=== PATIENT | female | born 2005 | race Caucasian/White ===

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

== ENCOUNTER 2025-03-15 08:57 | Outpatient (REF) | payer OTHER, SELFPAY | END 2025-03-15 08:58 | disposition home or self-care (01) | LOC: HO.LNP 08:57 | PROVIDERS: PCP Nurse Practitioner Family; Visit Provider Physician Assistant Medical | DX: N39.0 Urinary tract infection, site not specified (principal) | CPT/HCPCS: 87086; 87088; 87186 ==

== ENCOUNTER 2025-03-15 08:57 | Outpatient (AMB) | payer OTHER, SELFPAY ==
--- NOTE | 2025-03-15 09:17 | AM.OFFWIN_ITS ---
Intake Vital Signs 03/15/25 09:18 Height 5 ft 3 in BMI Reason not done Patient refused/unable BP 118/78 Blood Pressure Location Lt brachial Position Sitting Pulse 76 Pulse Source Pulse Oximeter Temp 97.8 F Temp Source Oral Pulse Oximetry (%) 98 Oxygen Delivery Method Room Air Intake Visit Reasons: EP ? UTI Allergies No Known Allergies Allergy (Verified 03/15/25 09:17) Do you need a note to return to daycare/school/sports/work: Yes HPI HPI Comments History of Present Illness Details 19 yo female who presents today with her mother for dysuria for the past 3 days. She states that she has been having pain and burning with urination for the past few days. She states that she has been having urgency and frequency. She has had some blood in her urine and it has been cloudy. She states that her last menses was February 13. She is not sexually active. She wears cotton underwear but she needs new ones. She admits that she has been using sex toys and she has been storing them in a velvet bag. Her mother has been telling her to wash them with each use. She denies fever or chills. She denies abd pain, n/v/d, vaginal discharge, or vaginal bleeding. She is not sexua lly active. She did use OTC Azo at home the last 2 days. Review of Systems Const Denies chills and Denies fever(s) Card Denies dyspnea Resp Denies dyspnea GI Denies abdominal pain, Denies constipation, Denies diarrhea, Denies nausea and Denies vomiting Reports hematuria, Reports dysuria, Reports urinary urgency, Denies vaginal discharge, Denies vaginal odor and Denies vaginal pruritus Physical Exam Vital Signs: Last Vital Signs Temp 97.8 F 03/15/25 09:18 Pulse 76 03/15/25 09:18 BP 118/78 03/15/25 09:18 Pulse Ox 98 03/15/25 09:18 Oxygen Delivery Method Room Air 03/15/25 09:18 Resp Auscultation: clear to auscultation bilaterally Cardio Rate: regular rate Rhythm: regular rhythm GI Palpation (GI): Soft to palpation, nontender and No Rebound tenderness present Auscultation: normal bowel sounds General: Yes no CVA tenderness Back/Spine/Pelvis Back: no CVA tenderness Results AMB Urinalysis, Automated UA Leukoctes 125 Varun/uL Last Edit by Milton Wagner CMA on 03/15/25 09:4 3 UA Nitrite Positive Last Edit by Milton Wagner CMA on 03/15/25 09:43 UA Urobilinogen 1 mg/dL Last Edit by Milton Wagner CMA on 03/15/25 09:4 3 UA Protein 30 mg/dL Last Edit by Milton Wagner CMA on 03/15/25 09:43 UA pH 7.5 Last Edit by Milton Wagner CMA on 03/15/25 09:43 UA Blood 25 [place]/uL Last Edit by Milton Wagner CMA on 03/15/25 09:43 UA Specific [place] 1.010 Last Edit by Milton Wagner CMA on 03/15/25 09:43 UA Ketone Negative Last Edit by Milton Wagner CMA on 03/15/25 09:43 UA Bilirubin 2 mg/dL Last Edit by Milton Wagner CMA on 03/15/25 09:43 UA Glucose 250 mg/dL Last Edit by Milton Wagner CMA on 03/15/25 09:43 Results Reviewed Results Reviewed: Laboratory Last Values Urine pH (Auto) 7.5 03/15/25 09:42 Specific [place] (Auto) 1.010 03/15/25 09:42 Urine Protein (Auto) 30 mg/dL 03/15/25 09:42 Glucose (UA)(Auto) 250 mg/dL 03/15/25 09:42 Urine Ketones (Auto) Negative 03/15/25 09:42 Urine Blood (Auto) 25 [place]/uL 03/15/25 09:42 Urine Nitrite (Auto) Positive 03/15/25 09:42 Urine Bilirubin (Auto) 2 mg/dL 03/15/25 09:42 Urine Urobilinogen (Auto) 1 mg/dL 03/15/25 09:42 Leukocyte Esterase (Auto) 125 Varun/uL 03/15/25 09:42 Assessment & Plan Assessment & Plan (1) UTI (urinary tract infection): Code(s): N39.0 - Urinary tract infection, site not specified Plan Most likely UTI plan- -will do a UA in the office -UA shows 2+ leuko, pos nitrates, pos urobil, pos protein, 1+blood, 2+beni, 1+glu -drink lots of fluids -cefuroxime 500 mg BID for 5 days -will order UC -f/u with PCP Orders: Orders AMB Urinalysis Automated Today Z13.9 - Encounter for screening, unspecified Urine Culture Today N39.0 - Urinary tract infection, site not specified Medications: New cefuroxime axetil 500 mg PO Q12H 10 tabs 0RF Coding Level of Care Code New Pt Level 3 (79881) Diagnoses UTI (urinary tract infection) N39.0
[2025-03-15 09:18] VITALS: BP 118/78; PULSE 76; TEMP 36.6; O2SAT 98
== END 2025-03-15 10:47 | disposition home or self-care (01) ==
PROVIDERS: Visit Provider Physician Assistant Medical
DX: N39.0 Urinary tract infection, site not specified (principal)

== ENCOUNTER 2025-04-16 12:28 | Outpatient (AMB) | payer OTHER, SELFPAY ==
--- NOTE | 2025-04-16 12:30 | MHC.PC.OV ---
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 Accompanied by: Mother Allergies No Known Allergies Allergy (Verified 04/16/25 12:57) Medication List - Last Reconciled 04/16/25 by ROSS GoodwinP- lisdexamfetamine (Vyvanse) 60 mg PO QAM ropinirole 1 mg PO BEDTIME sertraline 25 mg PO DAILY Tobacco use date assessed: 04/16/25 Dental Screening Dental Screen Date: 04/16/25 Did you have a dental visit in the last 12 months?: No Did you have a dental problem in the last 6 months where you did not have access to dental care?: No Was dental information given to patient?: Yes HPI RN PATIENT SERVICES, establish care; autism HPI Details History of Present Illness The patient is a 20-year-old female presenting for a comprehensive evaluation and management of existing conditions. She has a significant history of Autism Spectrum Disorder and regularly sees a therapist and psychiatrist. There is no report of suicidal or homicidal ideation. 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 A referral to endocrinology has been planned to initiate this process. She has been diagnosed with Restless Legs Syndrome, for which her psychiatrist prescribes medication. The patient exhibits toe walking, more pronounced on the left side, which has been present since . A dark mole has been observed on her posterior left neck, which requires further evaluation. The patient reports chronic whole-body pain, and there is a plan to investigate fibromyalgia and conduct autoimmune testing. Basic labs will be conducted as part of her physical examination today. She has never had a Pap smear, and a referral for this screening has been placed. Health Maintenance - Referral for Pap smear screening Social History Review of Systems - Psychiatric: Denies suicidal ideation, denies homicidal ideation Physical Exam General: Cooperative, healthy appearing, comfortable, no acute distress and well developed Orientation: Patient oriented x3 Limitations: No limitations Head: Normal to inspection Ears: Hearing grossly normal bilaterally Nose: Normal external nose present Face and sinus: Normal facial exam Eyes: Appearance normal, both eyes and all related structures Neck: Dark mole appearing lesion to posterior left neck Respiratory: Normal respiratory effort and able to speak in complete sentences. Clear to auscultation bilaterally Cardiovascular: Regular rate and rhythm. Normal S1 and S2 GI: Normal to inspection. Soft to palpation and nontender Skin: Dark mole appearing lesion to posterior left neck Neuro: Patient oriented x3 Extremities: Toe walking, left worse than right. Clutches fists slightly. Normal to inspection Results Plan The patient will be referred to endocrinology to explore the process of transitioning from female to male, addressing her gender dysphoria. Further evaluation of the dark mole on her posterior neck is necessary, and appropriate dermatological consultation will be considered. For her chronic pain, autoimmune testing and investigation for fibromyalgia will be conducted alongside basic laboratory tests as part of her physical examination. A referral for a Pap smear has been placed to address her preventative care needs. Patient was informed and verbally consented to the use of an ambient scribe for clinic note documentation during this visit. Discussion Notes I discussed with the patient the plan to refer her to endocrinology for gender transition evaluation and the importance of addressing her gender dysphoria. We also talked about the need to evaluate the dark mole on her neck and the potential for dermatological consultation. I explained the necessity of conducting autoimmune testing and investigating fibromyalgia for her chronic pain, along with the basic labs during her physical exam. The importance of preventative care was emphasized, and a referral for a Pap smear was placed. Patient Instructions - Follow up with endocrinology for gender transition evaluation. - Schedule a dermatology appointment for mole evaluation. - Complete autoimmune testing and basic labs as ordered. - Schedule a Pap smear as referred. [facility] Medical History Autism Surgical History History of tonsillectomy and adenoidectomy Family History Mother High blood pressure Diabetes CHF (congestive heart failure) High cholesterol Anxiety Depression CKD (chronic kidney disease) Mental health problem Mixed connective tissue disease Father Anxiety Depression Heart problem Mental health problem Substance abuse Brother Mental health problem Social History Housing: House Alcohol intake: never Patient Tobacco Use Status: Never used Tobacco e-Cigarette/Vaping Use: Never Used service: No Current occupational status: unemployed Current occupational exposures/hazards: No Cognitive needs: No Hearing needs: No Vision needs: Yes Questionnaire PHQ-9 Over the last 2 weeks, how often have you been bothered by any of the following problems? 1. Little interest or pleasure in doing things: more than half the days 2. Feeling down, depressed, or hopeless: several days 3. Trouble falling or staying asleep, or sleeping too much: several days 4. Feeling tired or having little energy: nearly every day 5. Poor appetite or overeating: not at all 6. Feeling bad about yourself - or that you are a failure or have let yourself or your family down: more than half the days 7. Trouble concentrating on things, such as reading the newspaper or watching television: nearly every day 8. Moving or speaking so slowly that other people could have noticed. Or the opposite - being so fidgety or restless that you have been moving around a lot more than usual: not at all 9. Thoughts that you would be better off or of hurting yourself in some way: not at all Total score: 12 Depression Screening Interpretation: Positive (denies any SI or HI, has a therapist and psychiatrist) Depression Screening Follow-up: Existing condition and In treatment Depression Screening Done: Yes 60640 - PHQ-9 Billing: Yes Source: Developed by Drs. Blaine Roblero, Kirsten Ko, Curly Hook and colleagues, with an educational nayla from [employer]. Thrive Questionnaire Date Thrive assessed: 04/16/25 I am a: Patient What is your living situation today?: I have a steady place to live Within the past 12 months, did the food you bought not last and you didn't have the money to get more?: I choose not to answer this question Within the past 12 months, did you worry whether your food would run out before you got money to buy more?: I choose not to answer this question Do you have trouble paying for medicines?: I choose not to answer this question Do you have trouble getting transportation to medical appointments?: No Do you have trouble paying your heating and electricity bill?: I choose not to answer this question Do you have trouble taking care of your child, family member or friend?: I choose not to answer this question Do you have trouble with day-to-day activities such as bathing, preparing meals, shopping, managing finances, etc.?: I choose not to answer this question Are you currently unemployed and looking for a job?: I choose not to answer this question Are you interested in more education?: I choose not to answer this question Please select the resources that you would like help with: None Currently or been in a relationship where the following occur: No concerns reported THRIVE Score: 0 AUDIT C Alcohol Use Questionnaire (AUDIT-C) 1. How often do you have a drink containing alcohol?: Never 3. How often do you have six or more drinks on one occasion?: Never Total Score: 0 Score Reviewed/Action Taken: Yes JOURDAN-7 AMB Questionnaire JOURDAN-7 Date OJURDAN - 7 assessed: 04/16/25 Feeling nervous, anxious, or on edge: 2 = More than half the days Not being able to stop or control worryin = More than half the days Worrying too much about different things: 2 = More than half the days Trouble relaxin = Nearly every day Being so restless that it is hard to sit still: 3 = Nearly every day Becoming easily annoyed or irritable: 2 = More than half the days Feeling afraid as if something awful might happen: 2 = More than half the days Total JOURDAN-7 score (0-4 normal; 5-9 mild; 10-14 moderate; 15-21 severe): 16 Source: Developed by Drs. Blaine Roblero, Kirsten Ko, Curly Hook and colleagues, with an educational nayla from [employer]. JOURDAN-7 Assessment Billing JOURDAN-7 Assessment Tool: JOURDAN-7 Assessment 70972 (has a therapist, denies any si or hi) Physical exam (Primary Care) Vital Signs: Last Vital Signs Pulse 90 04/16/25 12:32 BP 118/76 04/16/25 12:32 Pulse Ox 96 04/16/25 12:32 BMI result Body Mass Index 34.0 Tobacco/Smoking Status: Tobacco use Status Tobacco use date assessed 04/16/25 04/16/25 12:35 Patient Tobacco Use Status Never used Tobacco 04/16/25 12:41 e-Cigarette/Vaping Use Never Used 04/16/25 12:41 PHQ-9: PHQ-9 Score PHQ-9: Total score 12 04/16/25 12:42 Depression Screening Interpretation: Positive (denies any SI or HI, has a therapist and psychiatrist) Depression Screening Follow-up: Existing condition and In treatment Thrive Assessment: Date of Thrive Assessment Date Thrive assessed 04/16/25 04/16/25 12:35 Currently or been in a relationship where the following occur: No concerns reported Coding Level of Care Code New Pt Prev Care 18-39yr([id number] Diagnoses RLS (restless legs syndrome) G25.81 Gender dysphoria F64.9 Encounter for routine adult physical exam with abnormal findings Z00. Screening for cervical cancer Z12.4 Whole body pain R52 Additional Codes PHQ-9 - 18741 - PHQ-9 Billing: Yes ([id number]) JOURDAN-7 Assessment Billing - JOURDAN-7 Assessment Tool: JOURDAN-7 Assessment [id number] ([id number]) Assessment & Plan Assessment & Plan (1) RLS (restless legs syndrome): Code(s): G25.81 - Restless legs syndrome Category: Medical (2) Gender dysphoria: Comment: interested transitioning to male from female Code(s): F64.9 - Gender identity disorder, unspecified Category: Medical (3) Encounter for routine adult physical exam with abnormal findings: Code(s): Z00. - Encounter for general adult medical examination with abnormal findings Category: Medical (4) Screening for cervical cancer: Code(s): Z12.4 - Encounter for screening for malignant neoplasm of cervix Category: Medical (5) Whole body pain: Code(s): R52 - Pain, unspecified Category: Medical Plan . Orders: Orders Comprehensive [place]. Panel Fast Today Z00.01 - Encounter for general adult medical examination with abnormal findings TSH reflex Free T4 Today Z00.01 - Encounter for general adult medical examination with abnormal findings MAGDA Reflex Titer and Pattern Today R52 - Pain, unspecified Cyclic Citrullinated Peptide Today R52 - Pain, unspecified Tick-borne Disease Molecular Today R52 - Pain, unspecified Complete Blood Count Auto Diff Today Z00.01 - Encounter for general adult medical examination with abnormal findings UA CC w/rflx Micro + Cult Today Z00.01 - Encounter for general adult medical examination with abnormal findings Lipid Panel Today Z00.01 - Encounter for general adult medical examination with abnormal findings Erythrocyte Sedimentation Rate Today R52 - Pain, unspecified C Reactive Protein Today R52 - Pain, unspecified Sjogren's Antibodies Today R52 - Pain, unspecified Rheumatoid Factor Today R52 - Pain, unspecified Lyme IgG/IgM w/reflex to WB Today R52 - Pain, unspecified Referrals [employer]IST Referral Z12.4 - Encounter for screening for malignant neoplasm of cervix Endocrinology Referral F64.9 - Gender identity disorder, unspecified
[2025-04-16 12:32] VITALS: BP 118/76; PULSE 90; O2SAT 96; BMI 34.0
== END 2025-04-16 13:10 | disposition home or self-care (01) ==
PROVIDERS: Visit Provider Nurse Practitioner Family
DX: Z00.01 Encounter for general adult medical examination with abnormal findings (principal); G25.81 Restless legs syndrome; F64.9 Gender identity disorder, unspecified; R52 Pain, unspecified

== ENCOUNTER → 2025-04-16 12:28 | Outpatient (BNVA) | payer OTHER, SELFPAY | PROVIDERS: Visit Provider Nurse Practitioner Family | DX: Z00.01 Encounter for general adult medical examination with abnormal findings (principal); F84.0 Autistic disorder; F64.9 Gender identity disorder, unspecified; G25.81 Restless legs syndrome; R52 Pain, unspecified | CPT/HCPCS: 96127; 99385 ==

== ENCOUNTER 2025-05-08 10:18 | Outpatient (REF) | payer OTHER, SELFPAY ==
[2025-05-08 13:38] LABS: MANUAL DIFF FLAG NO
[2025-05-08 13:42] LABS: Hematocrit 40.2 % (37.0-47.0); Hemoglobin 13.3 g/dl (12.0-16.0); Imm Gran Abs Auto 0.02 X10*3/uL (0.00-0.03); Imm Gran Pct Auto 0.2 % (0.0-0.4); Lymphocytes Absolute Auto 2.9 X10*3/uL (1.2-4.9); Mean Corpuscular HGB Conc 33.1 g/dl (31.0-35.0); Mean Corpuscular Hemoglobin 29.0 pg (27.0-33.0); Mean Corpuscular Volume 87.8 fL (80.0-98.0); NRBC Abs Auto 0.000 X10*3/uL (0.0-0.012); NRBC Pct Auto 0.0 /100WBC (0.0-0.2); Platelet Count 392 X10*3/uL (160-400); Red Blood Count 4.58 X10*6/uL (4.20-5.50); White Blood Count 8.3 X10*3/uL (4.8-10.8)
[2025-05-08 14:08] LABS: Alanine Aminotransferase 15 U/L (0-31); Albumin Level 4.5 g/dL (3.5-5.0); Alkaline Phosphatase 73 U/L (39-117); Anion Gap 10 (12-20); Aspartate Amino Transferase 20 U/L (5-31); Blood Urea Nitrogen 14 mg/dL (9-16); Calcium 8.6 mg/dL (8.4-10.2); Carbon Dioxide 20 mmol/L (22-29); Chloride 114 mmol/L (96-108); Cholesterol 150 mg/dL (<200); Estimated Glomerular Filt Rate > 60; HDL Cholesterol 42 mg/dL (>40); Potassium 4.0 mmol/L (3.3-5.1); Sodium 140 mmol/L (135-145); Total Protein 7.0 g/dL (6.5-8.0); Triglycerides 54 mg/dL (<150)
[2025-05-09 05:38] LABS: Lyme Abs Screen <0.90 index
[2025-05-09 21:18] LABS: Antibody to SS-A Antigen <1.0 NEG AI (<1.0 NEG); Antibody to SS-B Antigen <1.0 NEG AI (<1.0 NEG)
[2025-05-10 00:54] LABS: A. Phagocytphilium DNA,RT-PCR NOT DETECTED (NOT DETECTED); Babesia Microti DNA, RT-PCR NOT DETECTED (NOT DETECTED); Borrelia Miyamotoi,DNA RT-PCR NOT DETECTED (NOT DETECTED); E.Chaffeensis DNA RT-PCR NOT DETECTED (NOT DETECTED); Lyme(Borrelia ssp)DNA RT-PCR NOT DETECTED (NOT DETECTED)
[2025-05-14 11:49] LABS: Anti Nuclear Antibody Screen NEGATIVE (NEGATIVE)
== END 2025-05-08 10:19 | disposition home or self-care (01) ==
LOC: HO.HMGCLDS 10:18
PROVIDERS: PCP Nurse Practitioner Family; Visit Provider Nurse Practitioner Family
DX: Z00.01 Encounter for general adult medical examination with abnormal findings (principal); R52 Pain, unspecified
CPT/HCPCS: 36415; 80053; 80061; 84443; 85025; 85652; 86038; 86140; 86200; 86235; 86431; 86617; 86618; 87468; 87469; 87478; 87484; 87798